=== PATIENT | female | born 1950 | race Caucasian/White ===

== ENCOUNTER 2020-02-04 09:58 | Emergency (ER) | payer MEDICARE ==
[2020-02-04 10:22] VITALS: BP 148/67; PULSE 75
--- NOTE | 2020-02-04 10:27 | EDM.PDOC ---
<JermainHebert S - Last Filed: 02/04/20 11:03> ED HPI GENERAL MEDICAL PROBLEM - General Chief Complaint: Lower Extremity Injury/Pain Stated Complaint: fell on right knee; swollen sore Time Seen by Provider: 02/04/20 10:22 Source of Information: Reports: Patient History Limitations: Reports: No Limitations - History of Present Illness INITIAL COMMENTS - FREE TEXT/NARRATIVE: Pt is a 69 y/o female who present to the ED via private vehicle for right knee pain. Patient was carrying groceries into the house this morning when she tripped over a rain gutter. She fell on the right knee, striking a concrete layer. She then fell forward onto her chest. Denies any head injury or loss of consciousness. No dizziness prior to the fall. She suffered a skin abrasion over the right knee cap and had difficulty bearing weight when she stood up. She went inside and took two Tramadol and an Ativan. She is now able to bear weight with 9/10 pain. Pain is 1/10 at rest with knee extended. Pain radiates down the leg and up the back of the thigh. The knee swelled up after the injury. She denies any previous injury to the joint. She is unable to flex the knee. Onset: Today, Sudden Location: Reports: Lower Extremity, Right Improves with: Reports: Immobilization, Rest Worsens with: Reports: Other (weight bearing), Movement Associated Symptoms: Reports: No Other Symptoms Treatments BAG TURNER: Reports: Other Medication(s) (Tramadol, Ativan) Right Knee Pain Score (Numeric/FACES): 1 (9/10 with weight bearing) - Related Data Allergies Allergy/AdvReac Type Severity Reaction Status Date / Time celecoxib [From Celebrex] Allergy Rash Verified 10/16/16 11:53 Ivouhxu-Jqb-Tsc Reductase Allergy Muscle Verified 10/16/16 11:53 Inhibitor Aches atorvastatin [From Lipitor] AdvReac Muscle Verified 10/16/16 11:53 Aches Home Meds: Home Meds Benzonatate 1 cap PO Q6H PRN 10/16/16 [History] Cholecalciferol (Vitamin D3) [Vitamin D3] 2,000 units PO DAILY 10/16/16 [History] Clopidogrel [Plavix] 75 mg PO DAILY 10/16/16 [History] Hydrochlorothiazide 25 mg PO DAILY 10/16/16 [History] LORazepam 1 mg PO Q4H PRN 10/16/16 [History] Ubidecarenone [Co Q-10] 1 cap PO DAILY 10/16/16 [History] traMADol [Ultram] 1 - 2 tab PO Q6H PRN 10/16/16 [History] DULoxetine [Cymbalta] 60 mg PO DAILY 02/04/20 [History] Miscellaneous Medical Supply [DME for Prescription] 1 each .XX ASDIRECTED #1 each 02/04/20 [Rx] oxyCODONE HCl/Acetaminophen [Oxycodone-Acetaminophen 5-300] 1 each PO Q4H PRN #10 tablet 02/04/20 [Rx] oxyCODONE HCl/Acetaminophen [Oxycodone-Acetaminophen 5-325] 1 each PO Q4H PRN #10 tab 02/04/20 [Rx] Review of Systems - Review of Systems Review Of Systems: Comprehensive ROS is negative, except as noted in HPI. ED EXAM, GENERAL - Physical Exam Exam: See Below Exam Limited By: Physical Impairment General Appearance: Alert, WD/WN, No Apparent Distress Eye Exam: Bilateral Eye: EOMI, Normal Inspection Ears: Normal External Exam, Hearing Grossly Normal Nose: Normal Inspection Throat/Mouth: Normal Voice, No Airway Compromise Head: Atraumatic, Normocephalic Respiratory/Chest: No Respiratory Distress, Lungs Clear, Normal Breath Sounds, No Accessory Muscle Use, Chest Non-Tender Cardiovascular: Normal Peripheral Pulses, Regular Rate, Rhythm, No Edema, No Gallop, No Murmur, No Rub Peripheral Pulses: 2+: Posterior Tibial (L), Posterior Tibial (R), Dorsalis Pedis (L), Dorsalis Pedis (R) GI/Abdominal: Soft, Non-Tender Extremities: Joint Swelling (Right knee effusion), Limited Range of Motion (There is full extension of the right knee, flexion is limited to 10 degrees. Full ROM of left knee and hip, right hip.), Other (Normal left knee anterior/posterior drawer, [place], and [place]. Right knee exam limited by pain, unable to assess joint stability. Patella mobile bilaterally. There is patellar tenderness on right anterior. ) Neurological: Alert, Oriented, Normal Cognition, No Motor/Sensory Deficits Psychiatric: Normal Affect, Normal Mood Skin Exam: Warm, Dry, Wound/Incision (minor skin abrasion over right patella) Course - Re-Assessments/Exams Free Text/Narrative Re-Assessment/Exam: 02/04/20 10:50 Patient updated with XR results. XR shows mildly displaced horizontally oriented fracture of the patella and small joint effusion. Free Text/Narrative Re-Assessment/Exam: 02/04/20 11:00 Patient fitted with knee immobilizer and crutches. Pain medication prescribed, cautioned on side effects. Apply warm/cold compresses for relief. Patient informed to avoid weight bearing to the affected leg. Follow up with orthopedics. Patient voices understanding and agreement with the plan. Departure - Departure Time of Disposition: 10:56 Disposition: Home, Self-Care 01 Condition: Fair Clinical Impression: Patellar fracture Qualifiers: Encounter type: initial encounter Fracture type: closed Fracture morphology: transverse Fracture alignment: displaced Laterality: right Qualified Code(s): S82.031A - Displaced transverse fracture of right patella, initial encounter for closed fracture - Discharge Information *PRESCRIPTION DRUG MONITORING PROGRAM REVIEWED*: Yes *COPY OF PRESCRIPTION DRUG MONITORING REPORT IN PATIENT DANIEL: No Prescriptions: Miscellaneous Medical Supply [DME for Prescription] 1 each .XX ASDIRECTED #1 each oxyCODONE HCl/Acetaminophen [Oxycodone-Acetaminophen 5-300] 1 each PO Q4H PRN #10 tablet PRN Reason: Pain oxyCODONE HCl/Acetaminophen [Oxycodone-Acetaminophen 5-325] 1 each PO Q4H PRN #10 tab PRN Reason: Pain Instructions: Patellar Fracture, Adult Forms: ED Department Discharge Additional Instructions: Use knee immobilizer and crutches when ambulating. Immobilizer may be removed when at rest and knee is in full extension. You may apply warm and cold compresses to the knee. Follow up with [facility]. Call the clinic at [phone] Wednesday to schedule an appointment. Sepsis Event Note (ED) - Evaluation Sepsis Screening Result: No Definite Risk - Assessment/Plan Assessment:: Closed displaced fracture of the right patella secondary to ground level fall. Plan: Knee immobilizer to maintain full extension, use crutches when ambulating. Prescription for 10 tabs oxycodone-acetaminophen 5-325 mg provided for pain management. Warm/cold compresses. Follow up with orthopedics, number provided for clinic. Contact ortho clinic Wednesday to schedule an appointment. <Leandro Vickers Last Filed: 02/04/20 11:15> Course - Vital Signs Last Recorded V/S: Last Vital Signs Temp 98 F 02/04/20 10:06 Pulse 75 02/04/20 10:06 Resp 16 02/04/20 10:06 BP 148/67 H 02/04/20 10:06 Pulse Ox 100 02/04/20 10:06 - Orders/Labs/Meds Orders: Active Orders 24 hr Category Date Time Status Immobilizer [RC] ASDIRECTED Care 02/04/20 10:47 Active DME for Discharge [COMM] Stat Oth 02/04/20 10:51 Ordered - Radiology Interpretation Free Text/Narrative:: [facility] Final Radiology Report Call: [phone] assistance Online chat: [email or web address] Name: KEZIA MONTE Age: 69Years F Date: 02/04/2020 SSN: -- : 1950 Study: CR KNEE 3V RT Requesting Physician: Hebert Aly Images: 3 Addl Studies: Provided Clinical History: fall on right knee, painful knee flexion Contrast: Contrast Medium: Contrast Amount: Contrast Method: CONFIDENTIALITY STATEMENT This report is intended only for use by the referring physician, and only in accordance with law. If you received this in error, call [phone]. Page 1 of 1 PROCEDURE INFORMATION: Exam: XR Right Knee Exam date and time: 02/04/2020 10:22 AM Age: 69 years old Clinical indication: Pain; Knee; Right; Additional info: Fall on right knee, painful knee flexion TECHNIQUE: Imaging protocol: XR Right knee. Views: 3 views. COMPARISON: MR KNEE RT 05/17/2007 1:39 PM FINDINGS: Bones/joints: A mildly displaced fracture of the patella is present. This traverses the mid polar region and is horizontally oriented. Approximately 4 mm of distraction is present. No additional fractures are identified. A small joint effusion is present with mild moderate grade anterior soft tissue swelling. Soft tissues: Krnb-[id number]-ceypvrwm soft tissue swelling present. IMPRESSION: 1. Mildly displaced horizontally oriented fracture of the patella. 2. Small joint effusion present. Thank you for allowing us to participate in the care of your patient. Dictated and Authenticated by: Zenon Franklin MD 02/04/2020 10:47 AM Central Time ([place] & [place]) - Re-Assessments/Exams Free Text/Narrative Re-Assessment/Exam: 02/04/20 10:43 I saw and evaluated the patient. Discussed with resident and agree with residents findings and plan as documented in the residents note. Sepsis Event Note (ED) - Focused Exam Vital Signs: Vital Signs Temp Pulse Resp BP Pulse Ox 02/04/20 10:06 98 F 75 16 148/67 H 100
--- NOTE | 2020-02-04 10:47 | CR ---
PROCEDURE INFORMATION: Exam: XR Right Knee Exam date and time: 02/04/2020 10:22 AM Age: 69 years old Clinical indication: Pain; Knee; Right; Additional info: Fall on right knee, painful knee flexion TECHNIQUE: Imaging protocol: XR Right knee. Views: 3 views. COMPARISON: MR KNEE RT 05/17/2007 1:39 PM FINDINGS: Bones/joints: A mildly displaced fracture of the patella is present. This traverses the mid polar region and is horizontally oriented. Approximately 4 mm of distraction is present. No additional fractures are identified. A small joint effusion is present with mild moderate grade anterior soft tissue swelling. Soft tissues: Ttrb-[id number] soft tissue swelling present. IMPRESSION: 1. Mildly displaced horizontally oriented fracture of the patella. 2. Small joint effusion present.
== END 2020-02-04 11:15 | disposition home or self-care (01) ==
LOC: DL.ED 09:58
DX: S82.031A Displaced transverse fracture of right patella, initial encounter for closed fracture (principal); Z88.6 Allergy status to analgesic agent; Z79.899 Other long term (current) drug therapy; Z88.8 Allergy status to other drugs, medicaments and biological substances; W01.198A Fall on same level from slipping, tripping and stumbling with subsequent striking against other object, initial encounter
CPT/HCPCS: 73562-RT; 99283; 99283-25

== ENCOUNTER 2022-10-14 08:16 | Day surgery (SDC) | payer MEDICARE ==
[2022-10-14] MEDS ORDERED: Proparacaine 0.5% Ophth Soln 15 ML Bottle EYELF ONE ×2 (08:30→09:30)
[2022-10-14] MEDS ORDERED: Povidone-Iodine 5% Sterile Ophth Soln 30 ML Bottle EYELF ONE ×2 (08:30→09:30)
[2022-10-14] MEDS ORDERED: Acetaminophen 325 MG Tab PO PRN (08:30)
[2022-10-14] MEDS ORDERED: Sodium Chloride 0.9% 10 ML Syringe FLUSH PRN (08:30)
[2022-10-14] MEDS ORDERED: Timolol Maleate 0.5% Ophth Soln 5 ML Bottle EYELF ONE (08:30)
[2022-10-14] MEDS ORDERED: Tropicamide 1% Ophth Soln 15 ML Bottle EYELF ONE (08:30)
[2022-10-14] MEDS ORDERED: Cataract Ophth Solution EYELF ONE (08:30)
[2022-10-14] MEDS ORDERED: Moxifloxacin 0.5% Ophth Soln 3 ML Bottle EYELF ONE (08:30)
[2022-10-14] MEDS ORDERED: Ondansetron 4 MG/2 ML SDV IVPUSH PRN (08:30)
[2022-10-14] MEDS ORDERED: Acetaminophen/Codeine 300-30 MG Tab PO PRN (08:30)
[2022-10-14] MEDS ORDERED: Phenylephrine 10% Ophth Soln 5 ML Bot EYELF PRN (08:30)
[2022-10-14] MEDS ORDERED: Lidocaine 1% 30 ML SDV ONE (09:37)
[2022-10-14] MEDS ORDERED: Vancomycin 500 MG SDV EYELF ONE (09:38)
[2022-10-14] MEDS ORDERED: Balanced Salt Solution Ophth Irrig 500 ML Bottle IOCULAR ONE (09:38)
[2022-10-14] MEDS ORDERED: Chondroitin Sulfate/Hyaluronate Sodium Ophth Inj 0.75 ML Syringe EYELF ONE (09:38)
[2022-10-14] MEDS ORDERED: Diclofenac Sodium 0.1% Ophth Soln 5 ML Bottle EYELF ONE (09:43)
[2022-10-14] MEDS ORDERED: Apraclonidine 0.5% Ophth Soln 5 ML Bot EYELF ONE (09:43)
[2022-10-14] MEDS ORDERED: Dexamethasone/Tobramycin 0.1-0.3% Ophth Oint 3.5 GM Tube EYELF ONE (09:43)
[2022-10-14 10:15] VITALS: BP 124/73; PULSE 80
== END 2022-10-14 10:12 | disposition home or self-care (01) ==
LOC: DL.SDS 08:16
PROVIDERS: ATTEND Ophthalmology
DX: H25.812 Combined forms of age-related cataract, left eye (principal); I10 Essential (primary) hypertension; F41.1 Generalized anxiety disorder; F17.210 Nicotine dependence, cigarettes, uncomplicated; I25.10 Atherosclerotic heart disease of native coronary artery without angina pectoris; E78.00 Pure hypercholesterolemia, unspecified; Z98.890 Other specified postprocedural states; Z79.899 Other long term (current) drug therapy; Z88.8 Allergy status to other drugs, medicaments and biological substances; Z88.6 Allergy status to analgesic agent; Z88.2 Allergy status to sulfonamides; Z88.1 Allergy status to other antibiotic agents; Z88.0 Allergy status to penicillin
CPT/HCPCS: 00142; A9270-GY; J3370; J3490; V2632

== ENCOUNTER 2022-10-23 08:11 | Day surgery (SDC) | payer MEDICARE ==
[2022-10-23] MEDS ORDERED: Dexamethasone 4 MG/ML SDV IV ONE (08:12)
[2022-10-23] MEDS ORDERED: Sodium Chloride 0.9% 10 ML Syringe IV ONE (08:12)
[2022-10-23] MEDS ORDERED: Midazolam 1 MG/ML 2 ML SDV IV ONE (08:12)
[2022-10-23] MEDS ORDERED: Acetaminophen 325 MG Tab PO PRN (08:30)
[2022-10-23] MEDS ORDERED: Moxifloxacin 0.5% Ophth Soln 3 ML Bottle EYERT ONE (08:30)
[2022-10-23] MEDS ORDERED: Ondansetron 4 MG/2 ML SDV IVPUSH PRN (08:30)
[2022-10-23] MEDS ORDERED: Sodium Chloride 0.9% 10 ML Syringe FLUSH PRN (08:30)
[2022-10-23] MEDS ORDERED: Acetaminophen/Codeine 300-30 MG Tab PO PRN (08:30)
[2022-10-23] MEDS ORDERED: Phenylephrine 10% Ophth Soln 5 ML Bot EYERT PRN (08:30)
[2022-10-23] MEDS ORDERED: Cataract Ophth Solution EYERT ONE (08:30)
[2022-10-23] MEDS ORDERED: Timolol Maleate 0.5% Ophth Soln 5 ML Bottle EYERT ONE (08:30)
[2022-10-23] MEDS ORDERED: Proparacaine 0.5% Ophth Soln 15 ML Bottle EYERT ONE ×2 (08:30→09:19)
[2022-10-23] MEDS ORDERED: Tropicamide 1% Ophth Soln 15 ML Bottle EYERT ONE (08:30)
[2022-10-23] MEDS ORDERED: Povidone-Iodine 5% Sterile Ophth Soln 30 ML Bottle EYERT ONE ×2 (08:30→09:20)
[2022-10-23] MEDS ORDERED: Apraclonidine 0.5% Ophth Soln 5 ML Bot EYERT ONE (09:20)
[2022-10-23] MEDS ORDERED: Dexamethasone/Tobramycin 0.1-0.3% Ophth Oint 3.5 GM Tube EYERT ONE (09:20)
[2022-10-23] MEDS ORDERED: Diclofenac Sodium 0.1% Ophth Soln 5 ML Bottle EYERT ONE (09:20)
[2022-10-23] MEDS ORDERED: Lidocaine 1% 30 ML SDV ONE (09:21)
[2022-10-23] MEDS ORDERED: Vancomycin 500 MG SDV EYERT ONE (09:21)
[2022-10-23] MEDS ORDERED: Chondroitin Sulfate/Hyaluronate Sodium Ophth Inj 0.75 ML Syringe EYERT ONE (09:21)
[2022-10-23] MEDS ORDERED: Balanced Salt Solution Ophth Irrig 500 ML Bottle IOCULAR ONE (09:21)
[2022-10-23 09:59] VITALS: BP 128/82; PULSE 81
== END 2022-10-23 09:57 | disposition home or self-care (01) ==
LOC: DL.SDS 08:11
PROVIDERS: ATTEND Ophthalmology
DX: H25.811 Combined forms of age-related cataract, right eye (principal); M19.90 Unspecified osteoarthritis, unspecified site; I25.10 Atherosclerotic heart disease of native coronary artery without angina pectoris; E78.5 Hyperlipidemia, unspecified; F41.1 Generalized anxiety disorder; I10 Essential (primary) hypertension; F17.210 Nicotine dependence, cigarettes, uncomplicated; Z98.890 Other specified postprocedural states; Z90.89 Acquired absence of other organs; Z79.899 Other long term (current) drug therapy; Z88.8 Allergy status to other drugs, medicaments and biological substances; Z88.2 Allergy status to sulfonamides; Z88.1 Allergy status to other antibiotic agents; Z86.73 Personal history of transient ischemic attack (TIA), and cerebral infarction without residual deficits; Z79.02 Long term (current) use of antithrombotics/antiplatelets
CPT/HCPCS: 00142; 66984; A9270; J1100; J2250; J3370; V2632; J3490